=== PATIENT | female | born 1980 | race Two or more races ===

== ENCOUNTER 2020-11-14 16:58 | Emergency (ER) | payer BC, OTHER ==
[~2020-11-14] VITALS: Ht 154.9 cm; Wt 63.5 kg
[2020-11-14] MEDS ORDERED: ACETAMINOPHEN 325 MG TAB PO ONE (17:30)
[2020-11-14] MEDS ORDERED: ONDANSETRON HCL 4 MG/2 ML VIAL IV ONE (17:45)
[2020-11-14] MEDS ORDERED: SODIUM CHLORIDE 0.9% 1,000 ML IV ONE ×2 (17:45→20:45)
[2020-11-14 19:06] LABS: Urine Bacteria NONE SEEN /hpf (None Seen); Urine Blood Negative /uL (Negative); Urine Specific Gravity 1.027 (1.001-1.035); Urine WBC 39 /hpf (0 - 5)
[2020-11-14 19:58] LABS: Albumin 3.4 g/dL (3.4-5.0); Calcium 8.7 mg/dL (8.5-10.1); Magnesium 1.9 mg/dL (1.6-2.6); Potassium 3.9 mmol/L (3.5-5.1)
[2020-11-14 20:02] LABS: BUN/Creatinine Ratio 16.7; Bilirubin, Total 0.4 mg/dL (0.2-1.0); Total Protein 7.8 g/dL (6.4-8.2)
[2020-11-14 20:07] LABS: Basophils # (auto) 0 10 ^3/uL (0-0.2); Basophils % (auto) 0.2 % (0.0-2.0); Eosinophils # (auto) 0 10 ^3/uL (0-0.8); Eosinophils % (auto) 0.2 % (0.0-7.0); Hematocrit 36.9 % (36.0-46.0); Hemoglobin 12.1 g/dL (12.2-16.2); Lymphocytes # (auto) 0.8 10 ^3/uL (0.4-5.4); Lymphocytes % (auto) 8.9 % (10.0-50.0); Mean Corpuscular Hgb Conc. 32.9 g/dL (32.0-36.0); Mean Corpuscular Volume 91.2 fL (80.0-100.0); Monocytes # (auto) 0.4 10 ^3/uL (0-1.3); Monocytes % (auto) 4.4 % (0.0-12.0); Neutrophils # (auto) 7.5 10 ^3/uL (1.6-8.6); Neutrophils % (auto) 86.3 % (37.0-80.0); Platelet Count (auto) 339 10^3/uL (140-450); Red Blood Cells 4.05 10^6/uL (4.0-5.20); White Blood Cell 8.7 10^3/uL (4.4-10.8)
[2020-11-14] MEDS ORDERED: ACETAMINOPHEN/CODEINE#3 (300/30mg) TAB PO ONE (20:45)
[2020-11-14] MEDS ORDERED: cefTRIAXone 1GM/50ML D5W 50 ML IV ONE (20:45)
[2020-11-14 22:33] LABS: Amphetamine Screen, Urine NEGATIVE (NEGATIVE); Barbiturate Scree,Urine NEGATIVE (NEGATIVE); Benzodiazephine Screen, Urine NEGATIVE (NEGATIVE); Cannabinoid Screen, Urine NEGATIVE (NEGATIVE); Cocaine Screen, Urine NEGATIVE (NEGATIVE); Opiate Scree,Urine NEGATIVE (NEGATIVE); Phencyclidine Screen, Urine NEGATIVE (NEGATIVE)
[2020-11-14] MEDS ORDERED: ONDANSETRON ODT 4 MG TAB PO ONE (23:30)
[2020-11-15 00:11] VITALS: BP 123/68
== END 2020-11-15 00:37 | disposition home or self-care (01) ==
LOC: ER 16:58
DX: N39.0 Urinary tract infection, site not specified (principal); D25.9 Leiomyoma of uterus, unspecified; N20.0 Calculus of kidney; N83.202 Unspecified ovarian cyst, left side; E86.0 Dehydration; K80.20 Calculus of gallbladder without cholecystitis without obstruction; E11.9 Type 2 diabetes mellitus without complications; Z20.822 Contact with and (suspected) exposure to COVID-19
CPT/HCPCS: 36415; 71045; 74176; 76775; 76830; 76856; 80053; 80307; 81001; 81025; 82010; 83735; 85025; 87426; 96361; 96365; 96375; 99285; J0696; J2405; J7030; Q0162

== ENCOUNTER 2025-07-29 07:17 | Inpatient (IN) | payer OTHER ==
[2025-07-29] VITALS (12 sets, daily range): BP systolic 123–184; BP diastolic 78–111; PULSE 65–85; RESP 14–17; TEMP 97.8–98; O2SAT 95–99
[~2025-07-29] VITALS: Ht 154.9 cm; Wt 61.6 kg
[~2025-07-29 07:17] MED LIST: GABA-1250 PO; HYDR-4795 PO; INSU100I52 IJ; PANT40TA2 PO; SEMA2INJ3 SC; ZOFR4T PO
[2025-07-29] MEDS: IODIXANOL 320MG/ML 100ML BTL IV ONE (09:18)
[2025-07-29] MEDS: fentaNYL CITRATE 100 MCG/2 ML VL ONE (09:47)
[2025-07-29] MEDS: VERAPAMIL 2.5MG/ML INJ 2ML VIAL IV ONE (09:47)
[2025-07-29] MEDS: ANGIOMAX 250 MG VIAL IV ONE (09:47)
[2025-07-29] MEDS: HEPARIN SODIUM (PORCINE) 5000 UNITS/ML 1ML VIAL ONE (09:47)
[2025-07-29] MEDS: LIDOCAINE 2%HCL (LOCAL ANESTH.) INJ 20ML MDV ONE (09:48)
[2025-07-29] MEDS: MIDAZOLAM HCL 2MG/2ML 2ml VIAL (1mg/ml) ONE (09:48)
[2025-07-29] MEDS: SODIUM CHL 0.9% 50 ML ONE (09:48)
[2025-07-29] MEDS: EPINEPHrine HCL 1 MG/10 ML SYRG ONE (10:13)
[2025-07-29] MEDS: ATROPINE SULF 1 MG/10ml SYR ONE (10:13)
[2025-07-29] MEDS: TICAGRELOR 90 MG TAB ONE (10:46)
--- NOTE | 2025-07-29 11:24 | DVHOP2 ---
Operative Report Operative Report CARDIAC ELECTROPLATER AUTOMATIC PROCEDURE REPORT [place], [place] Date of Service: 07/29/25 Traffic Recorder: Nafisa Riddle MD PROCEDURES PERFORMED: Coronary angiogram, left heart catheterization, conscious sedation administration and supervision, less than 15 minutes; fluoroscopy use and interpretation. PTCA 1 vessel, PCI 1 vessel, sedation 15-30 mins PREOPERATIVE DIAGNOSES: Abnormal CCTA with FFR 50-69% LAD stenosis POSTOP DIAGNOSIS: critical 1v cad DESCRIPTION OF PROCEDURE: The patient or appropriate family signed informed consent understanding the risks, benefits and alternatives of the procedure, they wished to proceed. The patient was brought to the cardiac crime laboratory analyst in n.p.o. state. The patient was prepped in a sterile fashion. Sedation was used per cardiac cath protocol. I administered 2 mL of 2% lidocaine to the right wrist. With an antegrade front wall puncture. I cannulated the right radial artery and placed a 6-Romansh Glidesheath slender. Next, an intra-arterial spasmolytic was administered. Next, a - 6French [place] catheter and XB 3 guide and were used for coronary angiogram and LVEDP measurement and pressure pullback. At the completion of procedure, all guides and wires were removed, and there were no immediate complications. FINDINGS: RCA: Moderate vessel off the right sinus of Valsalva, there is no severe flow limiting stenosis. LEFT MAIN: Moderate size left main, it bifurcates into LAD and circumflex. CIRCUMFLEX: Moderate caliber vessel coming off the left main with no flow limiting stenosis. LAD: LAD is a moderate caliber vessel coming of the left main. prox LAD has a focal 90-95% stenosis. distal LAD is patent INTERVENTION: We decided to proceed with coronary intervention. I started with a 6F __XB3__ Guide to intubate the _ LM _. Angiomax bolus and gtt was started. Following this, I decided to wire using an .014 BMW across the culprit lesion with ease. At this time, we performed balloon angioplasty with a _3 x 15 mm balloon by __15__ seconds with __2 __ number of inflations. Following this, I decided to place a stent using a ____3.0 x18 mm onyx____ stent inflated up to __18___ ATMS over 15 seconds with two separate inflations. then i used a 3.5 NC x 15 mm balloon up to 14 atms with 1 inflation with post dilatetion. Following this, the stent balloon removed and angio performed showing 0% residual stenosis. JOSEPH pre/post: 3./3 CONCLUSIONS: 1. sp pci to prox LAD 90-95% stenosis 2. severe HTN PLAN: Aggressive risk factor modification and medical management for the patient. DAPT x 1 year uninterrupted bp treatment NAFISA RIDDLE MD Jul 29, 2025 11:24
[2025-07-29] MEDS: hydrALAZINE HCL 20 MG/ML VL ONE (12:12)
[2025-07-29] MEDS: hydrALAZINE HCL 20 MG/ML VL IV ONE (12:12)
--- NOTE | 2025-07-29 14:24 | ECG ---
[facility] Test Date: 2025-07-29 Test Time: 08:35:49 Pat Name: ALMA ROSA ALVAREZ Department: Room: 0215T Gender: F Business Intelligence Manager: NAGA : 1980 Requested By: NAFISA RIDDLE Order Number: [id number] Reading MD: Jw Everett Measurements Intervals [place] Rate: 67 P: 22 UT: 174 QRS: 30 QRSD: 72 T: 53 QT: 414 QTc: 437 Interpretive Statements Normal sinus rhythm Nonspecific ST abnormality Electronically Signed On 08-01-2025 21:07:29 PDT by Jw Everett Please click the below link to view image of tracing.
[2025-07-29] MEDS ORDERED: NITROGLYCERIN 0.4 MG SL TAB SL PRN (15:00)
[2025-07-29] MEDS ORDERED: MORPHINE SULFATE 4 MG/ML SYR/VIAL IV PRN (15:30)
[2025-07-29] MEDS: CLOPIDOGREL BISULFATE 75 MG TAB PO ONE (18:09)
[2025-07-29] MEDS: HYDROcodone-ACET 7.5/325MG TAB PO ONE (22:31)
[2025-07-30] VITALS (9 sets, daily range): BP systolic 148–182; BP diastolic 93–110; PULSE 80–98; RESP 16–20; TEMP 98.1–98.6; O2SAT 96–99
[2025-07-30] MEDS: CLOPIDOGREL BISULFATE 75 MG TAB PO SCH (10:19)
--- NOTE | 2025-07-30 10:26 | DVHHP2 ---
Review of Systems Allergies: Coded Allergies: NO KNOWN ALLERGIES (Unverified , 07/26/25) Medications Current Medications Medications Dose Ordered Sig/Prabhu Route Start Time Stop Time Status Last Admin Dose Admin Nitroglycerin 0.4 mg Q5MINP PRN SL 07/29/25 15:00 Morphine Sulfate 2 mg Q30M PRN IV 07/29/25 15:30 Clopidogrel Bisulfate 75 mg DAILY PO 07/30/25 10:00 07/30/25 10:19 75 MG Aspirin 81 mg DAILY PO 07/31/25 10:00 UNV Exam Vital Signs Vital Signs Date Time Temp Pulse Resp B/P (MAP) Pulse Ox O2 Delivery O2 Flow Rate FiO2 07/30/25 09:00 98.6 83 18 149/96 (113) 98 98.6 07/29/25 20:00 Room Air* 0 21 SEPSIS Sepsis Screen Physician Orders Aspirin Tablet (07/30/25 10:30) Aspirin Tablet (07/31/25 10:00) Lisinopril Tablet (Zestril Tablet) (07/30/25 10:30) Lisinopril Tablet (Zestril Tablet) (07/31/25 10:00) Metoprolol Xl Succinate (Toprol Xl) (07/30/25 10:30) Metoprolol Xl Succinate (Toprol Xl) (07/31/25 10:00) Hydrocodone-Acet 7.5/325mg Tab ([place] 7. (07/30/25 10:30) Atorvastatin (Lipitor) (07/30/25 22:00) Stat Ekg For Chest Pain (07/30/25 10:18) Acetaminophen Tablet (Tylenol Tablet) (07/30/25 10:30) Ondansetron Hcl (Zofran) (07/30/25 10:30) Pantoprazole Tablet (Protonix Tablet) (07/31/25 06:00) Complete Blood Count (07/31/25 06:00) Comprehensive Metabolic Panel (07/31/25 06:00) Hemoglobin A1c (07/31/25 06:00) Chest Portable (07/30/25 10:18) Urinalysis (07/30/25 10:18) Vital Signs Date Time Temp Pulse Resp B/P (MAP) Pulse Ox O2 Delivery O2 Flow Rate FiO2 07/30/25 09:00 98.6 83 18 149/96 (113) 98 98.6 07/30/25 05:00 98.3 82 16 161/101 (121) 97 98.3 Medications Medications Dose Ordered Sig/Prabhu Route Start Time Stop Time Status Last Admin Dose Admin Clopidogrel Bisulfate 75 mg DAILY PO 07/30/25 10:00 07/30/25 10:19 75 MG Assessment/Plan Assessment/Plan SEE DICTATED NOTE Plan discussed with: Patient My Orders Orders - YAIR SANDERS MD Procedure Category Date Status Time Aspirin Tablet PHA 07/30/25 Logged 10:30 Aspirin Tablet PHA 07/31/25 Transmitted 10:00 Lisinopril Tablet PHA 07/30/25 Transmitted (Zestril Tablet) 10:30 Lisinopril Tablet PHA 07/31/25 Transmitted (Zestril Tablet) 10:00 Metoprolol Xl PHA 07/30/25 Transmitted Succinate (Toprol Xl) 10:30 Metoprolol Xl PHA 07/31/25 Transmitted Succinate (Toprol Xl) 10:00 Hydrocodone-Acet PHA 07/30/25 Transmitted 7.5/325mg Tab ([place] 10:30 Atorvastatin (Lipitor) PHA 07/30/25 Transmitted 22:00 Stat Ekg For Chest MIKE 07/30/25 In Process Pain 10:18 Acetaminophen Tablet PHA 07/30/25 Transmitted (Tylenol Tablet) 10:30 Ondansetron Hcl PHA 07/30/25 Transmitted (Zofran) 10:30 Pantoprazole Tablet PHA 07/31/25 Transmitted (Protonix Tablet) 06:00 Complete Blood Count LAB 07/31/25 Verified 06:00 Comprehensive LAB 07/31/25 Verified Metabolic Panel 06:00 Hemoglobin A1c LAB 07/31/25 Verified 06:00 Chest Portable XY 07/30/25 Logged 10:18 Urinalysis LAB 07/30/25 Uncollected 10:18 Date of Service: Jul 30, 2025 Billing Provider: YAIR SANDERS MD Common Visit Codes: [id number] INP/OBS CARE (HIGH) YAIR SANDERS MD Jul 30, 2025 10:26
[2025-07-30] MEDS ORDERED: ACETAMINOPHEN 325 MG TAB PO PRN (10:30)
[2025-07-30] MEDS ORDERED: ONDANSETRON HCL 4 MG/2 ML VIAL IV PRN (10:30)
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
[2025-07-30] MEDS: METOPROLOL SUCCINATE XL 50 MG TAB PO ONE (11:27)
[2025-07-30] MEDS: HYDROcodone-ACET 7.5/325MG TAB PO PRN (11:28)
[2025-07-30] MEDS: LISINOPRIL 5 MG TAB PO ONE (11:28)
--- NOTE | 2025-07-30 11:36 | DVH ---
INDICATION: CAD TECHNIQUE: Frontal view of the chest. COMPARISON: XR CHEST 2 VIEW on DOS: 06/14/25, CHEST PORTABLE on DOS: 11/14/20 FINDINGS: . The heart and mediastinal contours are grossly unremarkable. There is no evidence of pleural disea se. The lungs are clear. The bony structures of the chest are intact without fracture. IMPRESSION: 1. No evidence of acute disease.
[2025-07-30 19:21] LABS: Urine Protein, UAD Negative (Negative)
[2025-07-30] MEDS: ATORVASTATIN 20 MG TAB PO SCH (21:09)
[2025-07-31] VITALS (7 sets, daily range): BP systolic 120–168; BP diastolic 81–108; PULSE 80–91; RESP 16–20; TEMP 97.4–98.3; O2SAT 97–98
[2025-07-31] MEDS: PANTOPRAZOLE 40 MG TAB PO SCH (05:06)
[2025-07-31 06:45] LABS: Nucleated Red Blood Cells % 0.0 %
[2025-07-31 06:48] LABS: Hematocrit 33.8 % (36.0-46.0); Hemoglobin 11.7 g/dL (12.2-16.2); Mean Corpuscular Hemoglobin 34.1 pg (28.0-32.0); Mean Corpuscular Volume 98.2 fL (80.0-100.0)
[2025-07-31 07:21] LABS: Alanine Aminotransferase 20 U/L (7-40); Albumin 3.7 g/dL (3.2-4.8); Anion Gap 10 (5-15); BUN/Creatinine Ratio 18.3 (10.0-20.0); Blood Urea Nitrogen 15 mg/dL (9-23); Calcium 9.0 mg/dL (8.7-10.4); Carbon Dioxide 27 mmol/L (20-31); Chloride 103 mmol/L (98-107); Potassium 4.5 mmol/L (3.5-5.1); Sodium 140 mmol/L (136-145); Total Protein 6.3 g/dL (5.7-8.2)
[2025-07-31 07:22] LABS: Alkaline Phosphatase 43 U/L (46-116); Bilirubin, Total 0.2 mg/dL (0.2-1.0); Glucose 114 mg/dL (74-106)
[2025-07-31] MEDS: LISINOPRIL 5 MG TAB PO SCH (09:45)
[2025-07-31] MEDS: METOPROLOL SUCCINATE XL 50 MG TAB PO SCH (09:46)
--- NOTE | 2025-07-31 10:13 | DVHDS2 ---
Discharge Summary Date of Admission Jul 29, 2025 at 14:57 Date of Discharge: Jul 31, 2025 Labs/Diagnostic Data: Laboratory Results Test 07/31/25 04:54 07/30/25 11:30 White Blood Count 7.4 10^3/uL (4.4-10.8) Red Blood Count 3.44 10^6/uL (4.0-5.20) Hemoglobin 11.7 g/dL (12.2-16.2) Hematocrit 33.8 % (36.0-46.0) Mean Corpuscular Volume 98.2 fL (80.0-100.0) Mean Corpuscular Hemoglobin 34.1 pg (28.0-32.0) Mean Corpuscular Hemoglobin Concent 34.7 g/dL (32.0-36.0) Red Cell Distribution Width 13.0 % (11.8-14.3) Platelet Count 388 10^3/uL (140-450) Mean Platelet Volume 7.9 fL (6.9-10.8) Neutrophils (%) (Auto) 59.4 % (37.0-80.0) Lymphocytes (%) (Auto) 29.6 % (10.0-50.0) Monocytes (%) (Auto) 8.4 % (0.0-12.0) Eosinophils (%) (Auto) 2.5 % (0.0-7.0) Basophils (%) (Auto) 0.1 % (0.0-2.0) Neutrophils # (Auto) 4.4 10 ^3/uL (1.6-8.6) Lymphocytes # (Auto) 2.2 10 ^3/uL (0.4-5.4) Monocytes # (Auto) 0.6 10 ^3/uL (0-1.3) Eosinophils # (Auto) 0.2 10 ^3/uL (0-0.8) Basophils # (Auto) 0 10 ^3/uL (0-0.2) Nucleated Red Blood Cells 0.0 % Sodium Level 140 mmol/L (136-145) Potassium Level 4.5 mmol/L (3.5-5.1) Chloride Level 103 mmol/L (98-107) Carbon Dioxide Level 27 mmol/L (20-31) Anion Gap 10 (5-15) Blood Urea Nitrogen 15 mg/dL (9-23) Creatinine 0.82 mg/dL (0.550-1.02) Glomerular Filtration Rate Calc 89 mL/min (>90) BUN/Creatinine Ratio 18.3 (10.0-20.0) Serum Glucose 114 mg/dL (74-106) Hemoglobin A1c 5.8 % A1C (<5.7) Calcium Level 9.0 mg/dL (8.7-10.4) Total Bilirubin 0.2 mg/dL (0.2-1.0) Aspartate Amino Transferase (AST) 20 U/L (13-40) Alanine Aminotransferase (ALT) 20 U/L (7-40) Alkaline Phosphatase 43 U/L (46-116) Total Protein 6.3 g/dL (5.7-8.2) Albumin 3.7 g/dL (3.2-4.8) Urine Color Colorless (Yellow) Urine Clarity Clear (Clear) Urine pH 7.0 (5.0-9.0) Urine Specific [place] 1.006 (1.001-1.035) Urine Protein Negative (Negative) Urine Ketones Negative (Negative) Urine Blood Negative /uL (Negative) Urine Nitrite Negative (Negative) Urine Bilirubin Negative (Negative) Urine Urobilinogen Normal mg/dL (Negative) Urine Leukocyte Esterase Negative /uL (Negative) Urine RBC None seen /hpf (0 - 4) Urine Microscopic WBC /HPF (0-5) Urine Squamous Epithelial Cells Few /hpf (<5) Urine Bacteria Few /hpf (None Seen) Urine Glucose Normal mg/dL (Normal) Other Laboratory Tests 07/31/25 04:54 Brief Hx & Hospital Course: see dictated note Condition at Discharge: Fair Final Diagnosis/Problems List cad Discharge Disposition: Home Discharge Instruct/Medications Diet: Consistent carbohydrate, Cardiac 2g Na,low cholest Activity: Light activity Follow Up/Referral: shahbaz Liao Medications: script to pharmacy resume home meds Scheduled Insulin Lispro (Insulin Lispro), 6 UNIT IJ BS, (Reported) Pantoprazole Sodium Sesquihydr (Protonix), 40 MG PO BID, (Reported) Semaglutide (Ozempic), 2 MG SC EVERY TUESDAY, (Reported) Scheduled PRN Gabapentin (Gabapentin), 300 MG PO HSPRN PRN for NEUROPATHY, (Reported) Hydrocodone-Acetaminophen (Hydrocodone Bitartrate/AC 7.5-325 mg), 1 TAB PO TIDP PRN for PAIN SCALE 7 THRU 10, (Reported) Ondansetron Odt 4MG Tab (Zofran Po), 4 MG PO TIDP PRN for NAUSEA / VOMITING, (Reported) Discharge Statement: "Patient was advised to return to the ER or call 911 if any headaches, dizziness, shortness of breath, chest pain, abdominal pain, bleeding, fevers, or worsening of medical condition. Patient was counseled about treatment plan, medications, possible side effects, patientverbalized understanding. All questions were answered to the best of my ability. This discharge took greater then 30 minutes in planning, reviewing documentation, counseling the patient, and discussing with other team members." ASSESSMENT ASSESSMENT Assessment cad Date of Service: Jul 31, 2025 Billing Provider: YAIR SANDERS MD Common Visit Codes: [id number] DISCH DAY >30min YAIR SANDERS MD Jul 31, 2025 10:13
[2025-07-31] MEDS ORDERED: METO-6 PO (10:16)
[2025-07-31] MEDS ORDERED: CLOP75TA28 PO (10:16)
[2025-07-31] MEDS ORDERED: ASPI-498 PO (10:16)
[2025-07-31] MEDS ORDERED: LISI20TA56 PO (10:16)
[2025-07-31] MEDS ORDERED: ATOR-47 PO (10:16)
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
--- NOTE | 2025-07-31 13:28 | ECG ---
[facility] Test Date: 2025-07-30 Test Time: 10:54:13 Pat Name: ALMA ROSA ALVAREZ Department: Respiratoy Room: 0215T A Gender: F Communications Lead: NETTIE : 1980 Requested By: YAIR SANDERS Order Number: [id number] Reading MD: Jw Everett Measurements Intervals [place] Rate: 84 P: 32 AR: 176 QRS: 31 QRSD: 86 T: 59 QT: 375 QTc: 444 Interpretive Statements Sinus rhythm Electronically Signed On 08-01-2025 21:08:32 PDT by Jw Everett Please click the below link to view image of tracing.
== END 2025-07-31 14:30 | disposition home or self-care (01) | DRG 322 ==
LOC: CATH 07:17 → OVERFLOW 14:57 → TELE-CENTR 17:06
PROVIDERS: ADMIT Internal Medicine; ATTEND Internal Medicine
PROC: 027034Z Dilation of Coronary Artery, One Artery with Drug-eluting Intraluminal Device, Percutaneous Approach (ICD-10-PCS; principal; 2025-07-29)
PROC: 4A023N7 Measurement of Cardiac Sampling and Pressure, Left Heart, Percutaneous Approach (ICD-10-PCS; 2025-07-29)
PROC: B211YZZ Fluoroscopy of Multiple Coronary Arteries using Other Contrast (ICD-10-PCS; 2025-07-29)
DX: I25.10 Atherosclerotic heart disease of native coronary artery without angina pectoris (principal); I10 Essential (primary) hypertension; G89.21 Chronic pain due to trauma; E78.5 Hyperlipidemia, unspecified; G89.29 Other chronic pain; E11.9 Type 2 diabetes mellitus without complications; Z79.899 Other long term (current) drug therapy; Z79.82 Long term (current) use of aspirin; Z79.02 Long term (current) use of antithrombotics/antiplatelets
CPT/HCPCS: 36415; 71045; 80053; 81001; 83036; 85025; 92928; 93005; 93458; 99152; G0378; J2250; Q9967

== ENCOUNTER 2025-08-05 01:52 | Inpatient (IN) | payer OTHER ==
[~2025-08-05] VITALS: Ht 154.9 cm; Wt 64.2 kg
[~2025-08-05 01:52] MED LIST changes: +ASPI-498 PO; +ATOR-47 PO; +CLOP75TA28 PO; +LISI20TA56 PO; +METO-6 PO
--- NOTE | 2025-08-05 02:16 | ED.PDOC ---
History of Present Illness HPI Comments 45 y/o F presents with c/c of diffused chest wall pain. Patient reports sudden, unprovoked, and atraumatic onset of pain, this morning, while at rest. She also reports checking and noticing her blood pressure being elevated at home, lately, following recent angiogram and cardiac stent placement on 07/29/25 for a 90% coronary artery blockage; no improvement of blood pressure, today, following intake of 3x of her Clonidine prescription medication at home. Significant history for DM, HTN, and PTCA. Denial of any shortness of breath, nausea, vomiting, or further associated symptoms. Chief Complaint: Chest Pain Time Seen by MD: 01:50 Reviewed Notes: Nurses Notes, Medications, Allergies Allergies: Coded Allergies: NO KNOWN ALLERGIES (Unverified , 07/26/25) Home Meds Active Scripts Atorvastatin Calcium (ATORVASTATIN CALCIUM) 80 Mg Tab, 80 MG PO QPM for 30 Days, #30 TAB 4 Refills Prov:YAIR SANDERS MD 07/31/25 Lisinopril (Lisinopril) 20 Mg Tab, 20 MG PO DAILY for 30 Days, #30 TAB 4 Refills Prov:YAIR SANDERS MD 07/31/25 Metoprolol Succinate (Toprol Xl) 50 Mg Tab, 50 MG PO DAILY for 30 Days, #30 TAB 4 Refills Prov:YAIR SANDERS MD 07/31/25 Clopidogrel Bisulfate (Plavix) 75 Mg Tab, 75 MG PO DAILY for 30 Days, #30 TAB 4 Refills Prov:YAIR SANDERS MD 07/31/25 Aspirin (ASPIRIN 81) 81 Mg Tab, 81 MG PO DAILY for 30 Days, #30 TAB 4 Refills Prov:YAIR SANDERS MD 07/31/25 Reported Medications Ondansetron Odt 4MG Tab (ZOFRAN PO) 4 Mg Tb, 4 MG PO TIDP PRN for NAUSEA / VOMITING, TAB ODT TAB-DISSOLVE IN MOUTH, THEN SWALLOW 07/26/25 Pantoprazole Sodium Sesquihydr (Protonix) 40 Mg Tab, 40 MG PO BID for GERD, #30 TAB 07/26/25 Hydrocodone-Acetaminophen (Hydrocodone Bitartrate/AC 7.5-325 mg) 1 Tab Tab, 1 TAB PO TIDP PRN for PAIN SCALE 7 THRU 10, TAB 07/26/25 Gabapentin (Gabapentin) 300 Mg Cap, 300 MG PO HSPRN PRN for NEUROPATHY, MG 07/26/25 Insulin Lispro (Insulin Lispro) 100 Unit/Ml Inj, 6 UNIT IJ BS for DIABETES, INJ 07/26/25 Semaglutide (Ozempic) 2 Mg/3 Ml Inj, 2 MG SC EVERY TUESDAY for DIABETES, INJ 07/26/25 Information Source: Patient Mode of Arrival: Ambulatory Severity: Moderate Timing: Hours Duration: Since onset Prehospital treatment: Treatment Past Medical History PAST MEDICAL HISTORY: DM, HTN Surgical History: , PTCA Family History Family History: Unknown Social History Smoker: Non-Smoker Alcohol: Denies ETOH Use Drugs: Denies Drug Use Lives In: Home All Other Systems: Reviewed and Negative (Comprehensive systems review obtained and negative except for what is stated in the HPI) Physical Exam General Appearance: Moderate Distress HEENT: Normal ENT Inspection, Pharynx Normal, TMs Normal Neck: Full Range of Motion, Non-Tender, Normal, Normal Inspection Respiratory: Chest Non-Tender, Lungs Clear, No Accessory Muscle Use, No Respiratory Distress, Normal Breath Sounds Cardiovascular: No Edema, No JVD, No Murmur, No Gallop, Normal Peripheral Pulses, Regular Rate/Rhythm Breast Exam: Deferred Gastrointestinal: No Organomegaly, Non Tender, No Pulsatile Mass, Normal Bowel Sounds, Soft Genitalia: Deferred Pelvic: Deferred Rectal: Deferred Extremities: No calf tenderness, Normal capillary refill, Normal inspection, Normal range of motion, Non-tender, No pedal edema Musculoskeletal : Apperance: Normal Neurologic: Alert, maintenance chief II-XII nml as Tested, No Motor Deficits, Normal Affect, Normal Mood, No Sensory Deficits Cerebellar Function: Normal Reflexes: Normal Skin: Dry, Normal Color, Warm Peripheral Pulses: 3+ Radial (R), 3+ Radial (L) Lymphatic: No Adenopathy Was a procedure done? Was a procedure done?: No EKG EKG : Pulse Rate (adult): 81 [place]: Normal Cardiac Rhythm: NSR Block: None Hypertrophy: None ST: Normal Differential Dx Considerations may include: AL, PE, ACS, URI, PNA, viral syndrome, anxiety, post op complication, among others X-Ray, Labs, Meds, VS Vital Signs Date Time Temp Pulse Resp B/P (MAP) Pulse Ox O2 Delivery O2 Flow Rate FiO2 08/05/25 05:43 202/113 08/05/25 05:40 98.0 85 20 202/113 (142) 100 98.0 08/05/25 04:48 75 08/05/25 03:40 76 08/05/25 03:38 79 20 99 Room Air 08/05/25 03:38 168/102 08/05/25 03:38 98.2 85 20 168/102 (124) 99 98.2 08/05/25 02:16 81 08/05/25 02:01 81 08/05/25 01:55 98.5 82 18 181/108 99 98.5 Lab Test 08/05/25 03:21 08/05/25 02:14 Range/Units Troponin I High Sensitivity 14 17 </=34 ng/L White Blood Count 7.1 4.4-10.8 10^3/uL Red Blood Count 3.48 L 4.0-5.20 10^6/uL Hemoglobin 11.6 L 12.2-16.2 g/dL Hematocrit 34.4 L 36.0-46.0 % Mean Corpuscular Volume 98.9 80.0-100.0 fL Mean Corpuscular Hemoglobin 33.4 H 28.0-32.0 pg Mean Corpuscular Hemoglobin Concent 33.8 32.0-36.0 g/dL Red Cell Distribution Width 12.5 11.8-14.3 % Platelet Count 398 140-450 10^3/uL Mean Platelet Volume 7.5 6.9-10.8 fL Neutrophils (%) (Auto) 51.4 37.0-80.0 % Lymphocytes (%) (Auto) 39.9 10.0-50.0 % Monocytes (%) (Auto) 5.6 0.0-12.0 % Eosinophils (%) (Auto) 2.8 0.0-7.0 % Basophils (%) (Auto) 0.3 0.0-2.0 % Neutrophils # (Auto) 3.7 1.6-8.6 10 ^3/uL Lymphocytes # (Auto) 2.9 0.4-5.4 10 ^3/uL Monocytes # (Auto) 0.4 0-1.3 10 ^3/uL Eosinophils # (Auto) 0.2 0-0.8 10 ^3/uL Basophils # (Auto) 0 0-0.2 10 ^3/uL Nucleated Red Blood Cells 0.0 % Sodium Level 142 136-145 mmol/L Potassium Level 4.0 3.5-5.1 mmol/L Chloride Level 107 98-107 mmol/L Carbon Dioxide Level 26 20-31 mmol/L Anion Gap 9 5-15 Blood Urea Nitrogen 11 9-23 mg/dL Creatinine 0.64 0.550-1.02 mg/dL Glomerular Filtration Rate Calc 110 >90 mL/min BUN/Creatinine Ratio 17.2 10.0-20.0 Serum Glucose 118 H 74-106 mg/dL Calcium Level 9.1 8.7-10.4 mg/dL Current Medications Medications (Trade) Dose Ordered Sig/Prabhu Route Start Time Stop Time Status Last Admin Aspirin 325 mg ONCE ONCE PO 08/05/25 02:00 08/05/25 02:01 DC 08/05/25 02:32 Clonidine HCl (Catapres Tablet) 0.2 mg ONCE ONCE PO 08/05/25 03:30 08/05/25 03:31 DC 08/05/25 03:38 Nitroglycerin (Ntrostat Sublingual) 0.4 mg ONCE ONCE SL 08/05/25 04:15 08/05/25 04:16 DC 08/05/25 05:43 Patient alert. Came in for chest pain. Vitals stable. Blood pressure elevated. Was given aspirin. Was given clonidine. Recently had a stent placement at this hospital. EKG reviewed does not show any acute changes. Continues to have chest pain. Given nitro. Cardiac marker within normal limits. Reviewed her previous visit. Explained to the patient. Continue monitoring. Time of 1ST Reevaluation: 02:20 Reevaluation 1ST: Unchanged Patient Education/Counseling: Diagnosis, Treatment, Need For Follow Up Family Education/Counseling: No Family Present SEPSIS Sepsis Screen Date sepsis recognized/suspect: Aug 05, 2025 Time Sepsis recognized/suspect: 0200 Recent Procedure: No On Antibiotic Therapy: No Respiratory Rate >20: No Heart Rate >90: No Temp<36 C (96.8 F) or >38.3 C: No SBP <90 or MAP <65 mmHG: No New Acute Mental Status Change: No Is the patient on CPAP, BIPAP,: No Physician Orders Urinalysis (08/05/25 01:58) Vital Signs Date Time Temp Pulse Resp B/P (MAP) Pulse Ox O2 Delivery O2 Flow Rate FiO2 08/05/25 05:43 202/113 08/05/25 05:40 98.0 85 20 202/113 (142) 100 98.0 08/05/25 04:48 75 08/05/25 03:40 76 08/05/25 03:38 79 20 99 Room Air 08/05/25 03:38 168/102 08/05/25 03:38 98.2 85 20 168/102 (124) 99 98.2 08/05/25 02:16 81 08/05/25 02:01 81 08/05/25 01:55 98.5 82 18 181/108 99 98.5 Laboratory Tests Test 08/05/25 02:14 White Blood Count 7.1 10^3/uL (4.4-10.8) Medications Medications Dose Ordered Sig/Prabhu Route Start Time Stop Time Status Last Admin Dose Admin Aspirin 325 mg ONCE ONCE PO 08/05/25 02:00 08/05/25 02:01 DC 08/05/25 02:32 Clonidine HCl 0.2 mg ONCE ONCE PO 08/05/25 03:30 08/05/25 03:31 DC 08/05/25 03:38 Nitroglycerin 0.4 mg ONCE ONCE SL 08/05/25 04:15 08/05/25 04:16 DC 08/05/25 05:43 Departure 1 Departure Time of Disposition: 04:09 Impression: Primary Impression: Chest pain of unknown etiology Additional Impression: Hypertensive emergency Disposition: ADMITTED INPATIENT Admit to: Med Surg Condition: Guarded Critical Care Note Critical Care Time?: Yes (90 min-critical care time only) Stability Stability form required: No Heart Score Heart Score: Heart Score Response (Comments) Value History Moderate Suspicious 1 EKG Normal 0 Age 45-64 1 Risk Factors >3 or Hx ASHD 2 Troponin Normal limit 0 Total 4 I personally scribed for RYLEY BERGMAN MD ([email or web address]) on 08/05/25 at 02:15. Electronically submitted by Girma Cleary ([email or web address]). RYLEY BERGMAN MD Aug 05, 2025 02:15
[2025-08-05 02:26] LABS: Hematocrit 34.4 % (36.0-46.0); Hemoglobin 11.6 g/dL (12.2-16.2); Mean Corpuscular Hemoglobin 33.4 pg (28.0-32.0); Mean Corpuscular Volume 98.9 fL (80.0-100.0); Nucleated Red Blood Cells % 0.0 %
[2025-08-05 02:35] LABS: Chloride 107 mmol/L (98-107); Potassium 4.0 mmol/L (3.5-5.1); Sodium 142 mmol/L (136-145)
[2025-08-05 02:36] LABS: Anion Gap 9 (5-15); Carbon Dioxide 26 mmol/L (20-31)
[2025-08-05 02:37] LABS: Calcium 9.1 mg/dL (8.7-10.4)
[2025-08-05 02:41] LABS: BUN/Creatinine Ratio 17.2 (10.0-20.0); Blood Urea Nitrogen 11 mg/dL (9-23)
[2025-08-05 02:46] LABS: Glucose 118 mg/dL (74-106)
[2025-08-05] MEDS: NITROGLYCERIN 0.4 MG SL TAB SL ONE (05:43)
[2025-08-05] MEDS: MORPHINE SULFATE 4 MG/ML SYR/VIAL IV ONE (06:40)
[2025-08-05] MEDS: ONDANSETRON HCL 4 MG/2 ML VIAL IV ONE (06:41)
[2025-08-05] MEDS: LABETALOL HCL 20 MG/4 ML VL IV ONE (06:41)
[2025-08-05] MEDS ORDERED: HYDR50TA32 PO (07:58)
[2025-08-05] MEDS ORDERED: PATIENTS OWN MEDICATION (Hydroxyzine HCl (Hydroxyzine Hydrochloride) 1 TAB) PO PRN (08:00)
[2025-08-05] MEDS ORDERED: NITROGLYCERIN 0.4 MG SL TAB SL PRN ×2 (08:00→08:15)
[2025-08-05] MEDS ORDERED: ACETAMINOPHEN 325 MG TAB PO PRN ×2 (08:00→08:15)
[2025-08-05] MEDS ORDERED: DOCUSATE SOD 100 MG CAP PO PRN ×2 (08:00→08:15)
[2025-08-05] MEDS ORDERED: MORPHINE SULFATE INJ 2 MG/ml SYRG IV PRN (08:00)
[2025-08-05] MEDS ORDERED: ONDANSETRON HCL 4 MG/2 ML VIAL IV PRN ×2 (08:00→08:15)
[2025-08-05] MEDS ORDERED: DEXTROSE (50%) 50ML SYRG IV PRN ×2 (08:00→08:15)
[2025-08-05] MEDS ORDERED: HYDROcodone-ACET 7.5/325MG TAB PO PRN (08:00)
--- NOTE | 2025-08-05 08:03 | DVHHP2 ---
History of Present Illness Reason for Visit: Chest pain History of Present Illness Soco Son is a 45-year-old female with past medical history of angina, chronic pain, uncontrolled hypertension, hyperlipidemia, diabetes, and anxiety, who came to the hospital for chest pain. Patient states she has been having chest pain for about 4 months. She was referred to Dr. Liao and did outpatient workup. She came in for a scheduled left heart cath on 07/29/2025 where a stent was placed to her LAD. While here she was admitted due to uncontrolled hypertension. She was discharged home on 07/31/2025. She states her chest pain did improve, but came back prompting her to come to the hospital. While in the ER her blood pressure was in the 160-200's. She will be admitted for further care and Dr. Liao will be consulted. Cardiovascular: CAD, HTN, hyperipidemia, Other (PTCA with stent 07/29/2025) Psych: Anxiety Musculoskeletal: Chronic low back pain Endocrine: Diabetes Past Surgical History: Cholecystectomy, (x 5), Other (PTCA with stent 07/29/2025) Smoke: No ALCOHOL: none Drugs: None Lives: with Family Domestic Violence: Neg Review of Systems Constitutional: No: Fever, Chills, Sweats, Weakness, Malaise, Other Eyes: No: Pain, Vision change, Conjunctivae inflammation, Eyelid inflammation, Other, Redness ENT: No: Ear pain, Ear discharge, Nose pain, Nose discharge, Nose congestion, Mouth pain, Mouth swelling, Throat pain, Throat swelling, Other Respiratory: No: Cough, Dry, Shortness of breath, SOB with excertion, Wheezing, Hemoptysis, Pleuritic Pain, Sputum, Wheezing, Other Cardiovascular: Chest Pain, Other (hypertension); No: Palpitations, Orthopnea, Paroxysmal Noc. Dyspnea, Edema, Lt Headedness Gastrointestinal: No: Nausea, Vomiting, Abdominal Pain, Diarrhea, Constipation, Melena, Hematochezia, Other Genitourinary: No Dysuria, No Frequency, No Incontinence, No Hematuria, No Retention, No Other Musculoskeletal: No: other, neck pain, shoulder pain, arm pain, back pain, hand pain, leg pain, foot pain Skin: No: Rash, Lesions, Jaundice, Bruising, Other Neurological: No: Weakness, Numbness, Incoordination, Change in speech, Confus ion, Seizures, Other Allergies: Coded Allergies: NO KNOWN ALLERGIES (Unverified , 07/26/25) Medications Current Medications Medications Dose Ordered Sig/Prabhu Route Start Time Stop Time Status Last Admin Dose Admin Ondansetron HCl 4 mg Q4HP PRN IV 08/05/25 08:00 UNV Docusate Sodium 100 mg BIDPRN PRN PO 08/05/25 08:00 UNV Acetaminophen 650 mg Q6HP PRN PO 08/05/25 08:00 UNV Nitroglycerin 0.4 mg Q5MINP PRN SL 08/05/25 08:00 UNV Morphine Sulfate 2 mg Q30M PRN IV 08/05/25 08:00 UNV Aspirin 81 mg DAILY PO 08/05/25 10:00 UNV Clopidogrel Bisulfate 75 mg DAILY PO 08/05/25 10:00 UNV Acetaminophen/ Hydrocodone Bitart 1 tab TIDP PRN PO 08/05/25 08:00 UNV Lisinopril 20 mg DAILY PO 08/05/25 10:00 UNV Exam Vital Signs Vital Signs Date Time Temp Pulse Resp B/P (MAP) Pulse Ox O2 Delivery O2 Flow Rate FiO2 08/05/25 07:07 77 18 147/83 (104) 94 08/05/25 07:00 Room Air* 0 21 08/05/25 06:34 98.3 98.3 General Appearance: Alert, Oriented X3, Cooperative, mild distress HEENT: Atraumatic, PERRLA, Mucous membr. moist/pink Respiratory: Clear to auscultation, Normal air movement Cardiovascular: Regular rate, Normal S1, Normal S2, No murmurs Abdominal: Normal bowel sounds, No tenderness, No hepatospenomegaly Extremities: No clubbing, No cyanosis, No edema, Normal pulses, No tenderness/swelling Skin: No rashes, No breakdown, No significant lesion Neuro: Normal gait, Normal speech, Strength at 5/5 X4 ext Psych/Mental Status: Mental status NL, Mood NL Labs/Xrays Labs Test 08/05/25 03:21 08/05/25 02:14 Range/Units Troponin I High Sensitivity 14 </=34 ng/L White Blood Count 7.1 4.4-10.8 10^3/uL Red Blood Count 3.48 L 4.0-5.20 10^6/uL Hemoglobin 11.6 L 12.2-16.2 g/dL Hematocrit 34.4 L 36.0-46.0 % Mean Corpuscular Volume 98.9 80.0-100.0 fL Mean Corpuscular Hemoglobin 33.4 H 28.0-32.0 pg Mean Corpuscular Hemoglobin Concent 33.8 32.0-36.0 g/dL Red Cell Distribution Width 12.5 11.8-14.3 % Platelet Count 398 140-450 10^3/uL Mean Platelet Volume 7.5 6.9-10.8 fL Neutrophils (%) (Auto) 51.4 37.0-80.0 % Lymphocytes (%) (Auto) 39.9 10.0-50.0 % Monocytes (%) (Auto) 5.6 0.0-12.0 % Eosinophils (%) (Auto) 2.8 0.0-7.0 % Basophils (%) (Auto) 0.3 0.0-2.0 % Neutrophils # (Auto) 3.7 1.6-8.6 10 ^3/uL Lymphocytes # (Auto) 2.9 0.4-5.4 10 ^3/uL Monocytes # (Auto) 0.4 0-1.3 10 ^3/uL Eosinophils # (Auto) 0.2 0-0.8 10 ^3/uL Basophils # (Auto) 0 0-0.2 10 ^3/uL Nucleated Red Blood Cells 0.0 % Sodium Level 142 136-145 mmol/L Potassium Level 4.0 3.5-5.1 mmol/L Chloride Level 107 98-107 mmol/L Carbon Dioxide Level 26 20-31 mmol/L Anion Gap 9 5-15 Blood Urea Nitrogen 11 9-23 mg/dL Creatinine 0.64 0.550-1.02 mg/dL Glomerular Filtration Rate Calc 110 >90 mL/min BUN/Creatinine Ratio 17.2 10.0-20.0 Serum Glucose 118 H 74-106 mg/dL Calcium Level 9.1 8.7-10.4 mg/dL SEPSIS Sepsis Screen Date sepsis recognized/suspect: Aug 05, 2025 Time Sepsis recognized/suspect: 338 Recent Procedure: No On Antibiotic Therapy: No Respiratory Rate >20: No Heart Rate >90: No Temp<36 C (96.8 F) or >38.3 C: No SBP <90 or MAP <65 mmHG: No New Acute Mental Status Change: No Is the patient on CPAP, BIPAP,: No Physician Orders Urinalysis (08/05/25 01:58) Admit (08/05/25 07:54) Code Status (08/05/25 07:54) Ondansetron Hcl (Zofran) (08/05/25 08:00) Docusate Sodium Capsule (Colace Capsule) (08/05/25 08:00) Complete Blood Count (08/06/25 04:00) Comprehensive Metabolic Panel (08/06/25 04:00) Cardiac Diet-2gna,Lofat,Lochol (08/05/25 Breakfast) Condition: Serious (08/05/25:54) Acetaminophen Tablet (Tylenol Tablet) (08/05/25 08:00) Nitroglycerin Sublingual (Ntrostat Subli (08/05/25 08:00) Morphine Sulfate Injection (08/05/25 08:00) Stat Ekg For Chest Pain (08/05/25 07:54) Notify Md Of Changes From Base (08/05/25 07:54) Assistant Professor Of English For 24 Hours (08/05/25 07:54) Emergency Dysrhythmia Protocol (08/05/25 07:54) Rhythm Strips Once Every Shift (08/05/25 07:54) Oxygen By Nasal Cannula (08/05/25 07:54) Aspirin Enteric Coated Tablet (Ecotrin E (08/05/25 10:00) Clopidogrel Bisulfate (Plavix) (08/05/25 10:00) Hydrocodone-Acet 7.5/325mg Tab ([place] 7. (08/05/25 08:00) Lisinopril Tablet (Zestril Tablet) (08/05/25 10:00) Metoprolol Xl Succinate (Toprol Xl) (08/05/25 10:00) (Nf) Atorvastatin Calcium (08/05/25 18:00) Glucose Blood (Accu-Chek Comfort Curve T (08/05/25 11:30) Bedtime Insulin Scale (08/05/25 22:00) Moderate Insulin Ss (08/05/25 11:30) Dextrose 50% Syringe (08/05/25 08:00) Vital Signs Date Time Temp Pulse Resp B/P (MAP) Pulse Ox O2 Delivery O2 Flow Rate FiO2 08/05/25 07:07 77 18 147/83 (104) 94 08/05/25 07:00 Room Air* 0 21 08/05/25 06:41 71 184/102 08/05/25 06:40 73 18 184/102 08/05/25 06:34 98.3 70 18 184/102 (129) 93 98.3 08/05/25 05:43 202/113 08/05/25 05:40 98.0 85 20 202/113 (142) 100 98.0 08/05/25 04:48 75 08/05/25 03:40 76 08/05/25 03:38 79 20 99 Room Air 08/05/25 03:38 168/102 08/05/25 03:38 98.2 85 20 168/102 (124) 99 98.2 08/05/25 02:16 81 08/05/25 02:01 81 08/05/25 01:55 98.5 82 18 181/108 99 98.5 Laboratory Tests Test 08/05/25 02:14 White Blood Count 7.1 10^3/uL (4.4-10.8) Medications Medications Dose Ordered Sig/Prabhu Route Start Time Stop Time Status Last Admin Dose Admin Aspirin 325 mg ONCE ONCE PO 08/05/25 02:00 08/05/25 02:01 DC 08/05/25 02:32 325 MG Clonidine HCl 0.2 mg ONCE ONCE PO 08/05/25 03:30 08/05/25 03:31 DC 08/05/25 03:38 0.2 MG Labetalol HCl 10 mg ONCE ONCE IV 08/05/25 06:00 08/05/25 06:01 DC 08/05/25 06:41 10 MG Morphine Sulfate 4 mg ONCE ONCE IV 08/05/25 06:00 08/05/25 06:01 DC 08/05/25 06:40 4 MG Nitroglycerin 0.4 mg ONCE ONCE SL 08/05/25 04:15 08/05/25 04:16 DC 08/05/25 05:43 0.4 MG Ondansetron HCl 4 mg ONCE ONCE IV 08/05/25 06:00 08/05/25 06:01 DC 08/05/25 06:41 4 MG Assessment/Plan Assessment/Plan Assessment: Hypertensive emergency, Diabetes, Chronic pain, Coronary artery disease, Anxiety, Plan: Admit to Tele, Cardiology consult, PRN antihypertensives, Accu checks Q AC&HS with sliding scale, Home medications reconciled, Plan discussed with: Patient My Orders Orders - ODILIA GONZALEZ Procedure Category Date Status Time Admit ADMIT 08/05/25 Transmitted 07:54 Code Status CODE 08/05/25 Transmitted 07:54 Ondansetron Hcl PHA 08/05/25 Logged (Zofran) 08:00 Docusate Sodium PHA 08/05/25 Logged Capsule (Colace 08:00 Complete Blood Count LAB 08/06/25 Verified 04:00 Comprehensive LAB 08/06/25 Verified Metabolic Panel 04:00 Cardiac DIET 08/05/25 Transmitted Diet-2gna,Lofat,Lochol Breakfast Condition: Serious MIKE 08/05/25 In Process 07:54 Acetaminophen Tablet [facility] 08/05/25 Transmitted (Tylenol Tablet) 08:00 Nitroglycerin [facility] 08/05/25 Transmitted Sublingual (Ntrostat 08:00 Morphine Sulfate [facility] 08/05/25 Transmitted Injection 08:00 Stat Ekg For Chest [facility] 08/05/25 In Process Pain 07:54 Notify Md Of Changes [facility] 08/05/25 In Process From Base 07:54 Assistant Professor Of English For [facility] 08/05/25 In Process 24 Hours 07:54 Emergency Dysrhythmia [facility] 08/05/25 In Process Protocol 07:54 Rhythm Strips Once [facility] 08/05/25 In Process Every Shift 07:54 Oxygen By Nasal RT 08/05/25 Transmitted Cannula 07:54 Aspirin Enteric PHA 08/05/25 Transmitted Coated Tablet 10:00 Clopidogrel Bisulfate PHA 08/05/25 Transmitted (Plavix) 10:00 Hydrocodone-Acet PHA 08/05/25 Transmitted 7.5/325mg Tab ([place] 08:00 Lisinopril Tablet PHA 08/05/25 Transmitted (Zestril Tablet) 10:00 Metoprolol Xl PHA 08/05/25 Transmitted Succinate (Toprol Xl) 10:00 (Nf) Atorvastatin PHA 08/05/25 Transmitted Calcium 18:00 Glucose Blood PHA 08/05/25 Verified (Accu-Chek Comfort 11:30 Bedtime Insulin Scale PHA 08/05/25 Verified 22:00 Moderate Insulin Ss PHA 08/05/25 Verified 11:30 Dextrose 50% Syringe PHA 08/05/25 Verified 08:00 Date of Service: Aug 05, 2025 Billing Provider: ODILIA GONZALEZ Common Visit Codes: [id number] INP/OBS CARE (HIGH) ODILIA GONZALEZ Aug 05, 2025 08:03
[2025-08-05] MEDS ORDERED: MORPHINE SULFATE 4 MG/ML SYR/VIAL IV PRN (08:30)
--- NOTE | 2025-08-05 08:42 | DVHINCON2 ---
Date of service: Aug 05, 2025 History of Present Illness 45 yo F with cad s/p pci last week with me to high grade 95% LAD lesion, HTN, chronic pain admitted for HTN. pt has had severe htn for past 1 week or so. shes tkaing clonidine but doesnt have her norco. she missed her pain mgmt appt / to being admitted with us post pci Past Medical History reviewed Family History: Patient reports no known family medical history. Allergies: Coded Allergies: NO KNOWN ALLERGIES (Unverified , 07/26/25) Home Meds Active Scripts Atorvastatin Calcium (ATORVASTATIN CALCIUM) 80 Mg Tab, 80 MG PO QPM for 30 Days, #30 TAB 4 Refills Prov:YAIR SANDERS MD 07/31/25 Lisinopril (Lisinopril) 20 Mg Tab, 20 MG PO DAILY for 30 Days, #30 TAB 4 Refills Prov:YAIR SANDERS MD 07/31/25 Metoprolol Succinate (Toprol Xl) 50 Mg Tab, 50 MG PO DAILY for 30 Days, #30 TAB 4 Refills Prov:YAIR SANDERS MD 07/31/25 Clopidogrel Bisulfate (Plavix) 75 Mg Tab, 75 MG PO DAILY for 30 Days, #30 TAB 4 Refills Prov:YAIR SANDERS MD 07/31/25 Aspirin (ASPIRIN 81) 81 Mg Tab, 81 MG PO DAILY for 30 Days, #30 TAB 4 Refills Prov:YAIR SANDERS MD 07/31/25 Reported Medications Hydroxyzine HCl (Hydroxyzine Hydrochloride) 50 Mg Tab, 1 TAB PO TIDP PRN 08/05/25 Ondansetron Odt 4MG Tab (ZOFRAN PO) 4 Mg Tb, 4 MG PO TIDP PRN for NAUSEA / VOMITING, TAB ODT TAB-DISSOLVE IN MOUTH, THEN SWALLOW 07/26/25 Pantoprazole Sodium Sesquihydr (Protonix) 40 Mg Tab, 40 MG PO BID for GERD, #30 TAB 07/26/25 Hydrocodone-Acetaminophen (Hydrocodone Bitartrate/AC 7.5-325 mg) 1 Tab Tab, 1 TAB PO TIDP PRN for PAIN SCALE 7 THRU 10, TAB 07/26/25 Gabapentin (Gabapentin) 300 Mg Cap, 300 MG PO HSPRN PRN for NEUROPATHY, MG 07/26/25 Insulin Lispro (Insulin Lispro) 100 Unit/Ml Inj, 6 UNIT IJ BS for DIABETES, INJ 07/26/25 Semaglutide (Ozempic) 2 Mg/3 Ml Inj, 2 MG SC EVERY TUESDAY for DIABETES, INJ 07/26/25 Current Medications Current Medications Medications (Trade) Dose Ordered Sig/Prabhu Route PRN Reason Start Time Stop Time Status Last Admin Ondansetron HCl (Zofran) 4 mg Q4HP PRN IV NAUSEA / VOMITING 08/05/25 08:00 08/05/25 08:03 DC Docusate Sodium (Colace Capsule) 100 mg BIDPRN PRN PO FOR CONSTIPATION 08/05/25 08:00 08/05/25 08:03 DC Acetaminophen (Tylenol Tablet) 650 mg Q6HP PRN PO PAIN SCALE 1-3 OR TEMP>100.4 08/05/25 08:00 08/05/25 08:03 DC Nitroglycerin (Ntrostat Sublingual) 0.4 mg Q5MINP PRN SL FOR CHEST PAIN 08/05/25 08:00 08/05/25 08:03 DC Morphine Sulfate 2 mg Q30M PRN IV FOR CHEST PAIN 08/05/25 08:00 08/05/25 08:03 DC Aspirin (Ecotrin Enteric Coated Tablet) 81 mg DAILY PO 08/05/25 10:00 08/05/25 08:03 DC Clopidogrel Bisulfate (Plavix) 75 mg DAILY PO 08/05/25 10:00 08/05/25 08:03 DC Acetaminophen/ Hydrocodone Bitart ([place] 7.5/325MG Tab) 1 tab TIDP PRN PO PAIN SCALE 7 THRU 10 08/05/25 08:00 08/05/25 08:03 DC Lisinopril (Zestril Tablet) 20 mg DAILY PO 08/05/25 10:00 08/05/25 08:03 DC Metoprolol Succinate (Toprol Xl) 50 mg DAILY PO 08/05/25 10:00 08/05/25 08:03 DC Patient Own Medication 80 mg QPM PO 08/05/25 18:00 08/05/25 08:03 DC Diagnostic Test (Pha) (Accu-Chek Comfort Curve T) 1 strip ACHS 08/05/25 11:30 08/05/25 08:03 DC Insulin Human Regular (InsuLIN R) HS [place] 08/05/25 22:00 08/05/25 08:03 DC Insulin Human Regular (InsuLIN R) AC [place] 08/05/25 11:30 08/05/25 08:03 DC Dextrose 50 ml UD PRN IV Blood Sugar LESS THAN 60 08/05/25 08:00 08/05/25 08:03 DC Patient Own Medication 1 tab TIDP PRN PO ANXIETY 08/05/25 08:00 08/05/25 08:03 DC Clonidine HCl (Catapres Tablet) 0.1 mg Q6HP PRN PO SBP>160 08/05/25 08:00 08/05/25 08:03 DC Ondansetron HCl (Zofran) 4 mg Q4HP PRN IV NAUSEA / VOMITING 08/05/25 08:15 Morphine Sulfate 2 mg Q30M PRN IV FOR CHEST PAIN 08/05/25 08:30 Insulin Human Regular (InsuLIN R) [facility] 08/05/25 22:00 Insulin Human Regular (InsuLIN R) AC [place] 08/05/25 11:30 Dextrose 50 ml UD PRN IV Blood Sugar LESS THAN 60 08/05/25 08:15 Docusate Sodium (Colace Capsule) 100 mg BIDPRN PRN PO FOR CONSTIPATION 08/05/25 08:15 Acetaminophen (Tylenol Tablet) 650 mg Q6HP PRN PO PAIN SCALE 1-3 OR TEMP>100.4 08/05/25 08:15 Nitroglycerin (Ntrostat Sublingual) 0.4 mg Q5MINP PRN SL FOR CHEST PAIN 08/05/25 08:15 Aspirin (Ecotrin Enteric Coated Tablet) 81 mg DAILY PO 08/05/25 10:00 Clopidogrel Bisulfate (Plavix) 75 mg DAILY PO 08/05/25 10:00 Acetaminophen/ Hydrocodone Bitart ([place] 7.5/325MG Tab) 1 tab TIDP PRN PO PAIN SCALE 7 THRU 10 08/05/25 08:15 Lisinopril (Zestril Tablet) 20 mg DAILY PO 08/05/25 10:00 Metoprolol Succinate (Toprol Xl) 50 mg DAILY PO 08/05/25 10:00 Clonidine HCl (Catapres Tablet) 0.1 mg Q6HP PRN PO SBP>160 08/05/25 08:15 Patient Own Medication 80 mg QPM PO 08/05/25 18:00 UNV Diagnostic Test (Pha) (Accu-Chek Comfort Curve T) 1 strip ACHS 08/05/25 11:30 Patient Own Medication 1 tab TIDP PRN PO ANXIETY 08/05/25 08:15 UNV Review of Systems 10 pt ros otherwise negative Vital Signs Vital Signs Date Time Temp Pulse Resp B/P (MAP) Pulse Ox O2 Delivery O2 Flow Rate FiO2 08/05/25 08:00 86 08/05/25 07:07 18 147/83 (104) 94 08/05/25 07:00 Room Air* 0 21 08/05/25 06:34 98.3 98.3 Physical Exam nad s1 s2 rrr ctab soft nt/nd no edema Labs/Diagnostic Data Labs Test 08/05/25 03:21 08/05/25 02:14 Range/Units Troponin I High Sensitivity 14 </=34 ng/L White Blood Count 7.1 4.4-10.8 10^3/uL Red Blood Count 3.48 L 4.0-5.20 10^6/uL Hemoglobin 11.6 L 12.2-16.2 g/dL Hematocrit 34.4 L 36.0-46.0 % Mean Corpuscular Volume 98.9 80.0-100.0 fL Mean Corpuscular Hemoglobin 33.4 H 28.0-32.0 pg Mean Corpuscular Hemoglobin Concent 33.8 32.0-36.0 g/dL Red Cell Distribution Width 12.5 11.8-14.3 % Platelet Count 398 140-450 10^3/uL Mean Platelet Volume 7.5 6.9-10.8 fL Neutrophils (%) (Auto) 51.4 37.0-80.0 % Lymphocytes (%) (Auto) 39.9 10.0-50.0 % Monocytes (%) (Auto) 5.6 0.0-12.0 % Eosinophils (%) (Auto) 2.8 0.0-7.0 % Basophils (%) (Auto) 0.3 0.0-2.0 % Neutrophils # (Auto) 3.7 1.6-8.6 10 ^3/uL Lymphocytes # (Auto) 2.9 0.4-5.4 10 ^3/uL Monocytes # (Auto) 0.4 0-1.3 10 ^3/uL Eosinophils # (Auto) 0.2 0-0.8 10 ^3/uL Basophils # (Auto) 0 0-0.2 10 ^3/uL Nucleated Red Blood Cells 0.0 % Sodium Level 142 136-145 mmol/L Potassium Level 4.0 3.5-5.1 mmol/L Chloride Level 107 98-107 mmol/L Carbon Dioxide Level 26 20-31 mmol/L Anion Gap 9 5-15 Blood Urea Nitrogen 11 9-23 mg/dL Creatinine 0.64 0.550-1.02 mg/dL Glomerular Filtration Rate Calc 110 >90 mL/min BUN/Creatinine Ratio 17.2 10.0-20.0 Serum Glucose 118 H 74-106 mg/dL Calcium Level 9.1 8.7-10.4 mg/dL Assessment htn cad s/p pci chronic pain HL Plan/Recommendation cont dapt asa, statin, plavix increase lisinopril to 40 from 20 clonidine prn norco for pain ecg is sR and normal, trops are - Plan discussed with: Patient NAFISA RIDDLE MD Aug 05, 2025 08:42
[2025-08-05] MEDS ORDERED: hydrOXYzine 25 MG TAB or CAP PO PRN (09:00)
[2025-08-05] MEDS ORDERED: ASPirin-EC 81 mg tab PO SCH (10:00)
[2025-08-05] MEDS ORDERED: METOPROLOL SUCCINATE XL 50 MG TAB PO SCH (10:00)
[2025-08-05] MEDS ORDERED: CLOPIDOGREL BISULFATE 75 MG TAB PO SCH (10:00)
[2025-08-05] MEDS ORDERED: LISINOPRIL 20 MG TAB PO SCH ×2 (10:00)
[2025-08-05] MEDS: METOPROLOL SUCCINATE XL 50 MG TAB PO SCH (10:40)
[2025-08-05] MEDS: ASPirin-EC 81 mg tab PO SCH (10:41)
[2025-08-05] MEDS: CLOPIDOGREL BISULFATE 75 MG TAB PO SCH (10:42)
--- NOTE | 2025-08-05 11:23 | DVH ---
EXAM: XY CHEST PORTABLE Indication: Chest pain Technique: Single frontal view of the chest was obtained Comparison: XY CHEST PORTABLE on DOS: 07/30/25, XR CHEST 2 VIEW on DOS: 06/14/25, CHEST PORTABLE on DOS : 11/14/20 FINDINGS: Lines and Tubes: None Lungs: No focal consolidation. Pleura: No effusion. No pneumothorax. Cardiomediastinal contours: Unremarkable. Atherosclerotic vascular calcifications of the thoracic ao rta are noted. Bones: No acute osseous abnormality. IMPRESSION: No acute cardiopulmonary disease.
[2025-08-05] MEDS ORDERED: ACCU-CHEK COMFORT CURVE STRIP VI SCH (11:30)
[2025-08-05] MEDS ORDERED: InsuLIN REG 1unit/0.01ml Soln (100units/ml) SC SCH ×2 (11:30→22:00)
[2025-08-05] MEDS: InsuLIN REG 1unit/0.01ml Soln (100units/ml) SC SCH ×2 (11:53→22:00)
[2025-08-05] MEDS: ACCU-CHEK COMFORT CURVE STRIP VI SCH (11:53)
[2025-08-05 12:15] LABS: Urine Protein, UAD Negative (Negative)
[2025-08-05 13:00] VITALS: BP 139/88; PULSE 81; RESP 20; TEMP 97.9; O2SAT 99
[2025-08-05 14:00] VITALS: BP 151/88; PULSE 79; TEMP 97.9
[2025-08-05] MEDS: HYDROcodone-ACET 7.5/325MG TAB PO PRN ×2 (16:46→22:34)
[2025-08-05 17:00] VITALS: BP 179/101; PULSE 78; RESP 22; TEMP 98.2; O2SAT 98
[2025-08-05] MEDS ORDERED: PATIENTS OWN MEDICATION (Atorvastatin Calcium 80 MG) PO SCH (18:00)
[2025-08-05 21:00] VITALS: BP 168/93; PULSE 80; RESP 17; TEMP 98.3; O2SAT 96
[2025-08-05 21:56] VITALS: PULSE 75; RESP 18; O2SAT 100
[2025-08-05] MEDS: ATORVASTATIN 20 MG TAB PO SCH (22:25)
[2025-08-06 01:00] VITALS: BP 163/107; PULSE 82; RESP 16; TEMP 97.5; O2SAT 100
[2025-08-06 05:00] VITALS: BP 165/106; PULSE 85; RESP 16; TEMP 98.6; O2SAT 98
[2025-08-06 06:35] VITALS: BP 145/102; PULSE 77
[2025-08-06 07:03] LABS: Hematocrit 33.4 % (36.0-46.0); Hemoglobin 11.8 g/dL (12.2-16.2); Mean Corpuscular Hemoglobin 34.5 pg (28.0-32.0); Mean Corpuscular Volume 97.8 fL (80.0-100.0); Nucleated Red Blood Cells % 0.0 %
[2025-08-06 07:21] LABS: Alanine Aminotransferase 28 U/L (7-40); Albumin 4.0 g/dL (3.2-4.8); Anion Gap 10 (5-15); BUN/Creatinine Ratio 15.5 (10.0-20.0); Blood Urea Nitrogen 11 mg/dL (9-23); Calcium 9.0 mg/dL (8.7-10.4); Carbon Dioxide 26 mmol/L (20-31); Chloride 103 mmol/L (98-107); Potassium 4.2 mmol/L (3.5-5.1); Sodium 139 mmol/L (136-145); Total Protein 6.7 g/dL (5.7-8.2)
[2025-08-06 07:22] LABS: Bilirubin, Total 0.5 mg/dL (0.2-1.0)
[2025-08-06 07:23] LABS: Alkaline Phosphatase 46 U/L (46-116); Glucose 117 mg/dL (74-106)
[2025-08-06 08:00] VITALS: PULSE 74; PULSE 83; RESP 17; O2SAT 97
[2025-08-06 09:00] VITALS: BP 157/100; PULSE 83; RESP 17; TEMP 98; O2SAT 97
--- NOTE | 2025-08-06 09:52 | DVHDS2 ---
Discharge Summary Date of Admission Aug 05, 2025 at 07:54 Date of Discharge: Aug 06, 2025 Admitting Diagnosis Hypertensive Crisis Labs/Diagnostic Data: Laboratory Results Test 08/06/25 06:24 08/06/25 04:55 08/05/25 11:00 08/05/25 03:21 POC Glucose 133 mg/dl (70-106) White Blood Count 6.0 10^3/uL (4.4-10.8) Red Blood Count 3.41 10^6/uL (4.0-5.20) Hemoglobin 11.8 g/dL (12.2-16.2) Hematocrit 33.4 % (36.0-46.0) Mean Corpuscular Volume 97.8 fL (80.0-100.0) Mean Corpuscular Hemoglobin 34.5 pg (28.0-32.0) Mean Corpuscular Hemoglobin Concent 35.2 g/dL (32.0-36.0) Red Cell Distribution Width 12.4 % (11.8-14.3) Platelet Count 362 10^3/uL (140-450) Mean Platelet Volume 7.9 fL (6.9-10.8) Neutrophils (%) (Auto) 52.6 % (37.0-80.0) Lymphocytes (%) (Auto) 37.2 % (10.0-50.0) Monocytes (%) (Auto) 7.1 % (0.0-12.0) Eosinophils (%) (Auto) 2.6 % (0.0-7.0) Basophils (%) (Auto) 0.5 % (0.0-2.0) Neutrophils # (Auto) 3.2 10 ^3/uL (1.6-8.6) Lymphocytes # (Auto) 2.2 10 ^3/uL (0.4-5.4) Monocytes # (Auto) 0.4 10 ^3/uL (0-1.3) Eosinophils # (Auto) 0.2 10 ^3/uL (0-0.8) Basophils # (Auto) 0 10 ^3/uL (0-0.2) Nucleated Red Blood Cells 0.0 % Sodium Level 139 mmol/L (136-145) Potassium Level 4.2 mmol/L (3.5-5.1) Chloride Level 103 mmol/L (98-107) Carbon Dioxide Level 26 mmol/L (20-31) Anion Gap 10 (5-15) Blood Urea Nitrogen 11 mg/dL (9-23) Creatinine 0.71 mg/dL (0.550-1.02) Glomerular Filtration Rate Calc 105 mL/min (>90) BUN/Creatinine Ratio 15.5 (10.0-20.0) Serum Glucose 117 mg/dL (74-106) Calcium Level 9.0 mg/dL (8.7-10.4) Total Bilirubin 0.5 mg/dL (0.2-1.0) Aspartate Amino Transferase (AST) 25 U/L (13-40) Alanine Aminotransferase (ALT) 28 U/L (7-40) Alkaline Phosphatase 46 U/L (46-116) Total Protein 6.7 g/dL (5.7-8.2) Albumin 4.0 g/dL (3.2-4.8) Urine Color Light-yellow (Yellow) Urine Clarity Clear (Clear) Urine pH 6.5 (5.0-9.0) Urine Specific [place] 1.011 (1.001-1.035) Urine Protein Negative (Negative) Urine Ketones Negative (Negative) Urine Blood Negative /uL (Negative) Urine Nitrite Negative (Negative) Urine Bilirubin Negative (Negative) Urine Urobilinogen Normal mg/dL (Negative) Urine Leukocyte Esterase Negative /uL (Negative) Urine RBC <1 /hpf (0 - 4) Urine Microscopic WBC < 1 /HPF (0-5) Urine Squamous Epithelial Cells Few /hpf (<5) Urine Bacteria None seen /hpf (None Seen) Urine Glucose Normal mg/dL (Normal) Troponin I High Sensitivity 14 ng/L (</=34) Other Laboratory Tests 08/06/25 04:55 Brief Hx & Hospital Course: History of Present Illness Soco Son is a 45-year-old female with past medical history of angina, chronic pain, uncontrolled hypertension, hyperlipidemia, diabetes, and anxiety, who came to the hospital for chest pain. Patient states she has been having chest pain for about 4 months. She was referred to Dr. Liao and did outpatient workup. She came in for a scheduled left heart cath on 07/29/2025 where a stent was placed to her LAD. While here she was admitted due to uncontrolled hypertension. She was discharged home on 07/31/2025. She states her chest pain did improve, but came back prompting her to come to the hospital. While in the ER her blood pressure was in the 160-200's. She will be admitted for further care and Dr. Liao will be consulted. Course of hospitalization: Patient's blood pressure was noted to be significantly elevated, improved with pain management as well as increasing antihypertensives. Lisinopril was increased to 40 mg p.o. daily. And Toprol-XL was also increased to 100 mg p.o. daily. Patient's pain has improved with her [place] 7.5. Patient states that she missed her pain management appointment and is currently out of medications. Consultation was obtained with Cardiology. No further interventions. Patient will be continued on all her previous home medications in addition to the new changes with her blood pressure regimen. She is agreeable with discharge plan. All questions answered. Physical examination General: Alert and Oriented x3. No acute distress. Well-nourished. Eyes: EOMI. Anicteric. HENT: Moist mucous membranes. Lungs: Clear to auscultation bilaterally. No accessory muscle use. Cardiovascular: Regular rate and rhythm. No murmur. No JVD. Abdomen: Soft, non-tender and non-distended. No palpable masses. Extremities: No edema. Non-tender. Skin: No rashes or lesions. Warm. Neurologic: No focal neurological deficits. CN II-XII grossly intact, but not individually tested. Psychiatric: Cooperative. Appropriate mood and affect. Total time spent with patient discussing and formulating plan of care: 35 minutes. This medical document was created using an electronic medical record system with Lockr dictation system. Although this document has been carefully reviewed, there may still be some phonetic and typographical errors. These areas are purely typographical due to imperfections of the software programs, and do not reflect any compromise in the patient's medical care. Consults/Reason for consult Cardiology: Recent coronary stent placement Condition at Discharge: Guarded Final Diagnosis/Problems List Hypertensive crisis Coronary artery disease with recent stent placement Diabetes mellitus Dyslipidemia Chronic pain management Discharge Disposition: Home Discharge Instruct/Medications Medications: Toprol-XL 100 mg p.o. daily Lisinopril 40 mg p.o. daily Continue all previous home medications Scheduled Aspirin (Aspirin 81), 81 MG PO DAILY Atorvastatin Calcium (Atorvastatin Calcium), 80 MG PO QPM Clopidogrel Bisulfate (Plavix), 75 MG PO DAILY Insulin Lispro (Insulin Lispro), 6 UNIT IJ BS, (Reported) Lisinopril (Lisinopril), 20 MG PO DAILY Metoprolol Succinate (Toprol Xl), 50 MG PO DAILY Pantoprazole Sodium Sesquihydr (Protonix), 40 MG PO BID, (Reported) Semaglutide (Ozempic), 2 MG SC EVERY TUESDAY, (Reported) Scheduled PRN Gabapentin (Gabapentin), 300 MG PO HSPRN PRN for NEUROPATHY, (Reported) Hydrocodone-Acetaminophen (Hydrocodone Bitartrate/AC 7.5-325 mg), 1 TAB PO TIDP PRN for PAIN SCALE 7 THRU 10, (Reported) Hydroxyzine HCl (Hydroxyzine Hydrochloride), 1 TAB PO TIDP PRN, (Reported) Ondansetron Odt 4MG Tab (Zofran Po), 4 MG PO TIDP PRN for NAUSEA / VOMITING, (Reported) 36 Discharge Statement: "Patient was advised to return to the ER or call 911 if any headaches, dizziness, shortness of breath, chest pain, abdominal pain, bleeding, fevers, or worsening of medical condition. Patient was counseled about treatment plan, medications, possible side effects, patientverbalized understanding. All questions were answered to the best of my ability. This discharge took greater then 30 minutes in planning, reviewing documentation, counseling the patient, and discussing with other team members." ASSESSMENT ASSESSMENT Assessment Date of Service: Aug 06, 2025 Billing Provider: TYREL SMART NP Common Visit Codes: 24490-QNA/OBS DISCH DAY >30min TYREL SMART NP Aug 06, 2025 09:52
[2025-08-06] MEDS: LISINOPRIL 20 MG TAB PO SCH (10:27)
[2025-08-06] MEDS: METOPROLOL SUCCINATE XL 50 MG TAB PO SCH (10:28)
[2025-08-06] MEDS ORDERED: METO-6 PO (12:31)
[2025-08-06] MEDS ORDERED: HYDR-4795 PO (12:31)
[2025-08-06] MEDS ORDERED: LISI40TA16 PO (12:31)
[2025-08-06 13:00] VITALS: BP 121/83; PULSE 81; RESP 18; TEMP 98.9; O2SAT 98
--- NOTE | 2025-08-15 07:47 | ECG ---
[facility] Test Date: 2025-08-05 Test Time: 01:57:35 Pat Name: ALMA ROSA ALVAREZ Department: Room: 0216T A Gender: F Director Of Student Aid: ASIF : 1980 Requested By: RYLEY BERGMAN Order Number: [id number] Reading MD: Measurements Intervals [place] Rate: 81 P: 59 PA: 175 QRS: 66 QRSD: 85 T: 78 QT: 366 QTc: 425 Interpretive Statements Sinus rhythm Please click the below link to view image of tracing.
--- NOTE | 2025-08-15 07:48 | ECG ---
[facility] Test Date: 2025-08-05 Test Time: 03:40:52 Pat Name: ALMA ROSA ALVAREZ Department: Room: 0216T A Gender: F Rock Loader: MELCHOR : 1980 Requested By: RYLEY BERGMAN Order Number: [id number] Reading MD: Measurements Intervals [place] Rate: 76 P: 76 AR: 174 QRS: 70 QRSD: 84 T: 78 QT: 371 QTc: 418 Interpretive Statements Sinus rhythm Please click the below link to view image of tracing.
--- NOTE | 2025-08-15 07:48 | ECG ---
[facility] Test Date: 2025-08-05 Test Time: 04:48:17 Pat Name: ALMA ROSA ALVAREZ Department: Room: 0216T A Gender: F Power Bender Operator: REX : 1980 Requested By: RYLEY BERGMAN Order Number: [id number] Reading MD: Measurements Intervals [place] Rate: 75 P: 79 NV: 153 QRS: 71 QRSD: 83 T: 79 QT: 379 QTc: 424 Interpretive Statements Sinus rhythm Please click the below link to view image of tracing.
== END 2025-08-06 15:40 | disposition home or self-care (01) | DRG 305 ==
LOC: ER 01:52 → OVERFLOW 07:54 → ER 07:58 → TELE-CENTR 21:56
PROVIDERS: ADMIT Nurse Practitioner Acute Care; ATTEND Nurse Practitioner Acute Care
DX: I16.1 Hypertensive emergency (principal); I25.10 Atherosclerotic heart disease of native coronary artery without angina pectoris; I10 Essential (primary) hypertension; G89.29 Other chronic pain; F41.9 Anxiety disorder, unspecified; E11.9 Type 2 diabetes mellitus without complications; E78.5 Hyperlipidemia, unspecified; Z95.5 Presence of coronary angioplasty implant and graft; Z90.49 Acquired absence of other specified parts of digestive tract
CPT/HCPCS: 36415; 71045; 80048; 80053; 81001; 82962; 84484; 85025; 96374; 99291; 99292; G0378; J1815; J2405

== ENCOUNTER 2025-09-06 12:42 | Emergency (ER) | payer OTHER ==
[~2025-09-06] VITALS: Ht 157.5 cm; Wt 60.0 kg
[~2025-09-06 12:42] MED LIST changes: +HYDR50TA32 PO; -LISI20TA56 PO; +LISI40TA16 PO
[2025-09-06] MEDS: PROCHLORPERAZINE EDISYLATE 5 MG/ML 2ML VIAL IV ONE ×2 (13:12→16:12)
[2025-09-06] MEDS: SODIUM CHLORIDE 0.9% 1,000 ML IV ONE (13:12)
--- NOTE | 2025-09-06 14:18 | ED.PDOC ---
GI ASSESSMENT HPI Comments 45-year-old female presents here with profuse vomiting. Patient states that for last 1 year she has been having intermittent vomiting that began after they took her gallbladder out. She states however in the last 24 hours she has had significant emesis. Denies any recent cough cold runny nose fevers or chills. Reports epigastric discomfort that is she describes as burning. She states it is the vomiting and the pain started around the same time. She did take Zofran at home but did not help. Reports mild chronic diarrhea of given that she is on Ozempic. She also normally takes Ozempic for her diabetes. However for the last 2 weeks she has only been take able to take half dosages as the pharmacy would not give her refill. She states however her blood sugars has been controlled at home. Patient does not use any drugs, denies any marijuana usage. Chief Complaint: Nausea/Vomiting Time Seen by MD: 14:09 Reviewed Notes: Nurses Notes, Medications, Allergies Allergies: Coded Allergies: NO KNOWN ALLERGIES (Unverified , 07/26/25) Home Meds Active Scripts Hydrocodone-Acetaminophen (Hydrocodone Bitartrate/AC 7.5-325 mg) 1 Tab Tab, 1 TAB PO Q8HPRN PRN for 7 Days, #21 TAB Prov:TYREL SMART LAMINATING PRESS OPERATOR 08/06/25 Metoprolol Succinate (Toprol Xl) 50 Mg Tab, 2 TAB PO DAILY for 30 Days, #60 TAB 5 Refills Prov:TYREL SMART LAMINATING PRESS OPERATOR 08/06/25 Lisinopril (Lisinopril) 40 Mg Tab, 1 TAB PO DAILY, #30 TAB 5 Refills Prov:TYREL SMART NP 08/06/25 Atorvastatin Calcium (ATORVASTATIN CALCIUM) 80 Mg Tab, 80 MG PO QPM for 30 Days, #30 TAB 4 Refills Prov:YAIR SANDERS MD 07/31/25 Clopidogrel Bisulfate (Plavix) 75 Mg Tab, 75 MG PO DAILY for 30 Days, #30 TAB 4 Refills Prov:YAIR SANDERS MD 07/31/25 Aspirin (ASPIRIN 81) 81 Mg Tab, 81 MG PO DAILY for 30 Days, #30 TAB 4 Refills Prov:YAIR SANDERS MD 07/31/25 Reported Medications Hydroxyzine HCl (Hydroxyzine Hydrochloride) 50 Mg Tab, 1 TAB PO TIDP PRN 08/05/25 Ondansetron Odt 4MG Tab (ZOFRAN PO) 4 Mg Tb, 4 MG PO TIDP PRN for NAUSEA / VOMITING, TAB ODT TAB-DISSOLVE IN MOUTH, THEN SWALLOW 07/26/25 Pantoprazole Sodium Sesquihydr (Protonix) 40 Mg Tab, 40 MG PO BID for GERD, #30 TAB 07/26/25 Hydrocodone-Acetaminophen (Hydrocodone Bitartrate/AC 7.5-325 mg) 1 Tab Tab, 1 TAB PO TIDP PRN for PAIN SCALE 7 THRU 10, TAB 07/26/25 Gabapentin (Gabapentin) 300 Mg Cap, 300 MG PO HSPRN PRN for NEUROPATHY, MG 07/26/25 Insulin Lispro (Insulin Lispro) 100 Unit/Ml Inj, 6 UNIT IJ BS for DIABETES, INJ 07/26/25 Semaglutide (Ozempic) 2 Mg/3 Ml Inj, 2 MG SC EVERY TUESDAY for DIABETES, INJ 07/26/25 Information Source: Patient, Relative (Mother) Mode of Arrival: EMS Timing: Hours Duration: Since onset Quality: Burning Stool: Normal Severity: Moderate Recent: None Recent Hx of: None Pain Location: Diffuse, Epigastric Modifying Factors: Nothing Associated sign and symptoms: Nausea, Vomiting, Abdominal Pain Past Medical History PAST MEDICAL HISTORY: DM, HTN Surgical History: Cholecystectomy, , PTCA Family History Family History: Unknown Social History Smoker: Non-Smoker Alcohol: Denies ETOH Use Drugs: Denies Drug Use Lives In: Home Constitutional: denies: chills, diaphoresis, fatigue, fever, malaise, sweats, weakness, others EENTM: denies: blurred vision, double vision, ear bleeding, ear discharge, ear drainage, ear pain, ear ringing, eye pain, eye redness, hearing loss, mouth pain, mouth swelling, nasal discharge, nose bleeding, nose congestion, nose pain, photophobia, tearing, throat pain, throat swelling, voice changes, others Respiratory: denies: cough, hemoptysis, orthopnea, SOB at rest, shortness of breath, SOB with excertion, stridor, wheezing, others Cardiovascular: denies: chest pain, dizzy spells, diaphoresis, Dyspnea on exertion, edema, irregular heart beat, left arm pain, lightheadedness, palpitations, PND, syncope, others Gastrointestinal: reports: abdominal pain, nausea, vomiting; denies: abdomen distended, blood streaked bowels, constipated, diarrhea, dysphagia, difficulty swallowing, hematemesis, melena, poor appetite, poor fluid intake, rectal bleeding, rectal pain, others Genitourinary: denies: abnormal vagina bleeding, burning, dyspareunia, dysuria, flank pain, frequency, hematuria, incontinence, pain, , vagina discharge, urgency, others Neurological: denies: dizziness, fainting, headache, left sided numbness, left sided weakness, numbness, paresthesia, pre-existing deficit, right sided numbnes s, right sided weakness, seizure, speech problems, tingling, tremors, weakness, others Musculoskeletal: denies: back pain, gout, joint pain, joint swelling, muscle pain, muscle stiffness, neck pain, others Integumetry: denies: bruises, change in color, change in hair/nails, dryness, laceration, lesions, lumps, rash, wounds, others Allergic/Immunocompromised: denies: Difficulty Healing, Frequent Infections, Hives, Itching, others Hematologic/Lymphatic: denies: anemia, blood clots, easy bleeding, easy bruising, swollen glands, others Endocrine: denies: excessive hunger, excessive sweating, excessive thirst, excessive urination, flushing, intolerance to cold, intolerance to heat, unexplained weight gain, unexplained weight loss, others Psychiatric: denies: anxiety, bipolar disorder, depression, hopeless, panic disorder, schizophrenia, sleepless, suicidal, others All Other Systems: Reviewed and Negative Physical Exam General Appearance: Moderate Distress HEENT: Normal ENT Inspection, Pharynx Normal, TMs Normal Neck: Full Range of Motion, Non-Tender, Normal, Normal Inspection Respiratory: Chest Non-Tender, Lungs Clear, No Accessory Muscle Use, No Respiratory Distress, Normal Breath Sounds Cardiovascular: No Edema, No JVD, No Murmur, No Gallop, Normal Peripheral Pulses, Regular Rate/Rhythm Breast Exam: Deferred Gastrointestinal: Tenderness (Tenderness to the epigastric region, no CVA tenderness to palpation) Genitalia: Deferred Pelvic: Deferred Rectal: Deferred Extremities: No calf tenderness, Normal capillary refill, Normal inspection, Normal range of motion, Non-tender, No pedal edema Musculoskeletal : Apperance: Normal Neurologic: Alert, newcomer hostess II-XII nml as Tested, No Motor Deficits, Normal Affect, Normal Mood, No Sensory Deficits Cerebellar Function: Normal Reflexes: Normal Skin: Dry, Normal Color, Warm Lymphatic: No Adenopathy Was a procedure done? Was a procedure done?: No GI differential Dx Differential Diagnosis: Bowel Obstruction, Cholangitis, Esophagitis, Gastritis/PUD, Gastroenteritis, Urinary Obstruction, UTI, Dehydration, Diabetes/ DKA, Drug toxicity, Electrolyte Imbalance, Food Poisoning, , Viral, Hypovolemia, Malnutrition, Ischemic Bowel, Mass, Stress Ulcer X-Ray, Labs, Meds, VS Vital Signs Date Time Temp Pulse Resp B/P (MAP) Pulse Ox O2 Delivery O2 Flow Rate FiO2 09/06/25 15:49 98 15 99 Room Air* 0 21 09/06/25 15:49 97.9 98 15 117/49 (71) 99 97.9 09/06/25 12:42 98.1 90 22 144/100 99 98.1 Lab Test 09/06/25 15:57 09/06/25 15:22 09/06/25 14:18 Range/Units Urine Test Negative Negative Troponin I High Sensitivity < 3 L < 3 L </=34 ng/L White Blood Count 7.8 4.4-10.8 10^3/uL Red Blood Count 3.62 L 4.0-5.20 10^6/uL Hemoglobin 12.1 L 12.2-16.2 g/dL Hematocrit 36.1 36.0-46.0 % Mean Corpuscular Volume 99.6 80.0-100.0 fL Mean Corpuscular Hemoglobin 33.5 H 28.0-32.0 pg Mean Corpuscular Hemoglobin Concent 33.7 32.0-36.0 g/dL Red Cell Distribution Width 11.7 L 11.8-14.3 % Platelet Count 337 140-450 10^3/uL Mean Platelet Volume 7.5 6.9-10.8 fL Neutrophils (%) (Auto) 75.6 37.0-80.0 % Lymphocytes (%) (Auto) 19.7 10.0-50.0 % Monocytes (%) (Auto) 4.1 0.0-12.0 % Eosinophils (%) (Auto) 0.4 0.0-7.0 % Basophils (%) (Auto) 0.2 0.0-2.0 % Neutrophils # (Auto) 5.9 1.6-8.6 10 ^3/uL Lymphocytes # (Auto) 1.5 0.4-5.4 10 ^3/uL Monocytes # (Auto) 0.3 0-1.3 10 ^3/uL Eosinophils # (Auto) 0 0-0.8 10 ^3/uL Basophils # (Auto) 0 0-0.2 10 ^3/uL Nucleated Red Blood Cells 0.1 % Sodium Level 138 136-145 mmol/L Potassium Level 4.2 3.5-5.1 mmol/L Chloride Level 106 98-107 mmol/L Carbon Dioxide Level 24 20-31 mmol/L Anion Gap 8 5-15 Blood Urea Nitrogen 11 9-23 mg/dL Creatinine 0.76 0.550-1.02 mg/dL Glomerular Filtration Rate Calc 97 >90 mL/min BUN/Creatinine Ratio 14.5 10.0-20.0 Serum Glucose 116 H 74-106 mg/dL Calcium Level 8.6 L 8.7-10.4 mg/dL Total Bilirubin 0.5 0.2-1.0 mg/dL Aspartate Amino Transferase (AST) 18 13-40 U/L Alanine Aminotransferase (ALT) 18 7-40 U/L Alkaline Phosphatase 45 L 46-116 U/L Total Protein 6.8 5.7-8.2 g/dL Albumin 3.8 3.2-4.8 g/dL Lipase 49 12-53 U/L Current Medications Medications (Trade) Dose Ordered Sig/Prabhu Route Start Time Stop Time Status Last Admin Prochlorperazine Edisylate (Compazine Inj) 10 mg ONCE ONCE IV 09/06/25 13:15 09/06/25 13:16 DC 09/06/25 13:12 Sodium Chloride 1,000 ml @ 1,000 mls/hr Q1H ONCE IV 09/06/25 13:15 09/06/25 14:14 DC 09/06/25 13:12 Pantoprazole Sodium (Protonix) 40 mg ONCE ONCE IV 09/06/25 14:45 09/06/25 14:46 DC 09/06/25 15:36 Prochlorperazine Edisylate (Compazine Inj) 10 mg ONCE ONCE IV 09/06/25 14:45 09/06/25 14:46 DC 09/06/25 16:12 45-year-old female presents here with chronic vomiting x1 year that she states began after her gallbladder was removed. She states however the last 24 hours symptoms have worsened and she has had nonstop vomiting. She was found to be actively vomiting in triage. Dr. Witt was contacted who recommended Compazine and starting 1 L normal saline. At this time I have ordered blood work includ ing a CBC CMP lipase. At this time I have seen her after the Compazine. She is feeling better. She continues to have epigastric tenderness on my examination. Considered possible pancreatitis, biliary disease, gastritis, gastric ulcer. I have written for Protonix IV. Ultrasound of the gallbladder has also been ordered. CBC CMP lipase within normal limits. Patient however continued to require more nausea medication. I wrote for another dose of Compazine. Ordered an ultrasound of the gallbladder. I do not have the final read for the ultrasound however preliminary read does not demonstrate any abnormalities. At this time however the patient has a eloped prior to discharging the patient. Time of 1ST Reevaluation: 16:22 Reevaluation 1ST: Unchanged Patient Education/Counseling: Diagnosis, Treatment, Prognosis Family Education/Counseling: No Family Present SEPSIS Sepsis Screen Date sepsis recognized/suspect: Sep 06, 2025 Time Sepsis recognized/suspect: 1236 Recent Procedure: No On Antibiotic Therapy: No Respiratory Rate >20: Yes Heart Rate >90: No Temp<36 C (96.8 F) or >38.3 C: No SBP <90 or MAP <65 mmHG: No New Acute Mental Status Change: No Is the patient on CPAP, BIPAP,: No Physician Orders Electrocardigram (09/06/25 14:40) Electrocardigram (09/06/25 15:40) Gallbladder (09/06/25 14:45) Vital Signs Date Time Temp Pulse Resp B/P (MAP) Pulse Ox O2 Delivery O2 Flow Rate FiO2 09/06/25 15:49 98 15 99 Room Air* 0 21 09/06/25 15:49 97.9 98 15 117/49 (71) 99 97.9 09/06/25 12:42 98.1 90 22 144/100 99 98.1 Laboratory Tests Test 09/06/25 14:18 White Blood Count 7.8 10^3/uL (4.4-10.8) Medications Medications Dose Ordered Sig/Prabhu Route Start Time Stop Time Status Last Admin Dose Admin Pantoprazole Sodium 40 mg ONCE ONCE IV 09/06/25 14:45 09/06/25 14:46 DC 09/06/25 15:36 Prochlorperazine Edisylate 10 mg ONCE ONCE IV 09/06/25 13:15 09/06/25 13:16 DC 09/06/25 13:12 Prochlorperazine Edisylate 10 mg ONCE ONCE IV 09/06/25 14:45 09/06/25 14:46 DC 09/06/25 16:12 Sodium Chloride 1,000 ml @ 1,000 mls/hr Q1H ONCE IV 09/06/25 13:15 09/06/25 14:14 DC 09/06/25 13:12 Departure 1 Departure Time of Disposition: 18:04 Impression: Primary Impression: Gastritis Qualified Codes: K29.70 - Gastritis, unspecified, without bleeding Additional Impressions: Dehydration Vomiting Qualified Codes: R11.10 - Vomiting, unspecified Disposition: 07 LEFT AWOL/ELOPED Condition: Fair Critical Care Note Critical Care Time?: No Stability Stability form required: No Heart Score Heart Score: Heart Score Response (Comments) Value History N/A 0 EKG N/A 0 Age N/A 0 Risk Factors N/A 0 Troponin N/A 0 Total 0 I personally scribed for DEIDRE CORTES MD ([email or web address]) on 09/06/25 at 14:18. Electronically submitted by Ileana Ziegler ([facility]). I personally scribed for DEIDRE CORTES MD ([email or web address]) on 09/06/25 at 14:56. Electronically submitted by Ileana Ziegler ([facility] DEIDRE CORTES MD Sep 06, 2025 14:18
[2025-09-06 14:45] LABS: Hematocrit 36.1 % (36.0-46.0); Hemoglobin 12.1 g/dL (12.2-16.2); Mean Corpuscular Hemoglobin 33.5 pg (28.0-32.0); Mean Corpuscular Volume 99.6 fL (80.0-100.0); Nucleated Red Blood Cells % 0.1 %
[2025-09-06 14:56] LABS: Alanine Aminotransferase 18 U/L (7-40); Anion Gap 8 (5-15); BUN/Creatinine Ratio 14.5 (10.0-20.0); Blood Urea Nitrogen 11 mg/dL (9-23); Carbon Dioxide 24 mmol/L (20-31); Chloride 106 mmol/L (98-107); Lipase 49 U/L (12-53); Potassium 4.2 mmol/L (3.5-5.1); Sodium 138 mmol/L (136-145); Total Protein 6.8 g/dL (5.7-8.2)
[2025-09-06 14:57] LABS: Albumin 3.8 g/dL (3.2-4.8); Bilirubin, Total 0.5 mg/dL (0.2-1.0)
[2025-09-06 14:59] LABS: Alkaline Phosphatase 45 U/L (46-116); Calcium 8.6 mg/dL (8.7-10.4); Glucose 116 mg/dL (74-106)
[2025-09-06] MEDS: PANTOPRAZOLE 40 MG/10 ML VIAL INJ IV ONE (15:36)
[2025-09-06 15:49] VITALS: BP 117/49; PULSE 98; RESP 15; TEMP 97.9; O2SAT 99
--- NOTE | 2025-09-07 07:23 | DVH ---
INDICATION: History of cholecystectomy, rule out stone in the stump TECHNIQUE: Multiple real-time sonographic images of the abdomen were obtained. COMPARISON: None FINDINGS: Hepatic parenchyma appears heterogeneous with increased echogenicity consistent with steatosis. The liver measures 15.73 cm. No intrahepatic biliary ductal dilatation is noted. Gallbladder has been surgically removed. The common duct is not visualized. No pericholecystic fluid is noted. The right kidney measures 10.15 cm. No hydronephrosis. The pancreas is obscured by bowel gas. The visualized portions of the IVC and aorta are grossly unremarkable. IMPRESSION: 1. Gallbladder has been surgically removed. 2. Liver measures 15.73 cm with findings consistent with steatosis. 3. Right kidney measures 10.15 cm in length with no evidence of hydronephrosis. [place]
== END 2025-09-06 17:36 | disposition left against medical advice (07) ==
LOC: EDBD 12:42 → ER 12:42
DX: K29.70 Gastritis, unspecified, without bleeding (principal); E86.0 Dehydration; I10 Essential (primary) hypertension; E11.9 Type 2 diabetes mellitus without complications; Z79.82 Long term (current) use of aspirin; Z79.85 Long-term (current) use of injectable non-insulin antidiabetic drugs; Z79.899 Other long term (current) drug therapy; Z90.49 Acquired absence of other specified parts of digestive tract; Z98.890 Other specified postprocedural states
CPT/HCPCS: 36415; 76705; 80053; 81025; 83690; 84484; 85025; 96361; 96374; 96375; 96376; 99285; J0780; J2470; J7030